=== PATIENT | female | born 1960 | race African-American/Black ===

== ENCOUNTER 2017-08-26 16:27 | Inpatient (IN) | payer BC ==
[~2017-08-26] VITALS: Ht 170.2 cm; Wt 105.7 kg
[2017-08-26 18:20] LABS: CLARITY URINE CLEAR (CLEAR); COLOR URINE YELLOW (YELLOW); KETONES URINE NEGATIVE (NEGATIVE); LEUKOCYTE ESTERASE URINE TRACE (NEGATIVE); NITRITE URINE NEGATIVE (NEGATIVE); OCCULT BLOOD URINE NEGATIVE (NEGATIVE); PROTEIN URINE NEGATIVE (NEGATIVE); UROBILINOGEN URINE 0.2 E.U./dL (0.2-1.0)
[2017-08-26 19:36] LABS: CHLORIDE 104 mEq/L (98-107)
[2017-08-26 19:37] LABS: PROTHROMBIN TIME 10.9 sec (9.4-11.6)
[2017-08-26 19:38] LABS: HEMATOCRIT. 21.7 % (36.0-48.0); MEAN CORPUSCULAR HEMOGLOBIN 13.2 pg (28.0-32.0); MEAN CORPUSCULAR VOLUME 51.7 fL (81.0-99.0); MEAN PLATELET VOLUME 8.6 fl (7.4-10.4); PLATELET 448 x1000/uL (130-400); RED BLOOD CELL COUNT 4.19 mill/uL (4.2-5.4); RED CELL DISTRIBUTION WIDTH 23.7 % (11.6-14.6)
[2017-08-26 19:45] LABS: HEMOGLOBIN. 5.5 g/dL (12.0-16.0)
[2017-08-26 20:02] LABS: PLATELET ESTIMATE INCREASED
[2017-08-26 21:02] LABS: TOTAL IRON BINDING CAPACITY 405 ug/dL (250-450)
[2017-08-26 23:58] VITALS: BP 141/67
[2017-08-27] VITALS (9 sets, daily range): BP systolic 107–148; BP diastolic 51–71
[2017-08-27] MEDS ORDERED: ASPI-1159 PO (01:37)
[2017-08-27] MEDS ORDERED: PANTOPRAZOLE 40MG DR TABLET PO SCH (07:20)
[2017-08-27 08:08] LABS: VITAMIN B12 SERUM 320 pg/mL (211-911)
[2017-08-27 09:07] LABS: T4 FREE 1.24 ng/dL (0.76-1.46)
[2017-08-27] MEDS ORDERED: DIATR MEGLU/DIATRIZOATE SOLN 30ML PO SCH (13:45)
[2017-08-27] MEDS ORDERED: IRON SUCROSE COMPLEX 100 MG/5 ML ML IV SCH (14:00)
[2017-08-27 14:50] LABS: HEMATOCRIT 26.5 % (36.0-48.0); HEMOGLOBIN 7.2 g/dL (12.0-16.0); MEAN CORPUSCULAR HEMOGLOBIN 15.4 pg (28.0-32.0); MEAN CORPUSCULAR VOLUME 56.4 fL (81.0-99.0); PLATELET 396 x1000/uL (130-400); RED BLOOD CELL COUNT 4.69 mill/uL (4.2-5.4); RED CELL DISTRIBUTION WIDTH 28.1 % (11.6-14.6)
[2017-08-27 14:58] LABS: CHLORIDE 108 mEq/L (98-107)
[2017-08-27] MEDS ORDERED: IOHEXOL-300 100 ML BOTTLE ONE (17:12)
[2017-08-27 20:36] LABS: HEMATOCRIT 26.5 % (36.0-48.0); HEMOGLOBIN 7.3 g/dL (12.0-16.0)
[2017-08-28] VITALS: BP 125/62
[2017-08-28 04:00] VITALS: BP 106/56
[2017-08-28 07:32] LABS: CHLORIDE 109 mEq/L (98-107)
[2017-08-28 08:00] VITALS: BP 118/55
[2017-08-28] MEDS: PANTOPRAZOLE SODIUM 40 MG/VIAL IV SCH (09:00)
[2017-08-28 12:00] VITALS: BP 122/58
[2017-08-28 12:56] LABS: HEMATOCRIT 28.3 % (36.0-48.0); HEMOGLOBIN 7.5 g/dL (12.0-16.0); MEAN CORPUSCULAR HEMOGLOBIN 15.1 pg (28.0-32.0); MEAN CORPUSCULAR VOLUME 56.8 fL (81.0-99.0); PLATELET 405 x1000/uL (130-400); RED BLOOD CELL COUNT 4.98 mill/uL (4.2-5.4); RED CELL DISTRIBUTION WIDTH 28.3 % (11.6-14.6)
[2017-08-28 16:00] VITALS: BP 132/62
[2017-08-28] MEDS ORDERED: SORBITOL 70% SOLN 30ML PO NR ×3 (16:29→21:00)
[2017-08-28 20:00] VITALS: BP 123/66
[2017-08-29] VITALS: BP 105/52
[2017-08-29 01:50] LABS: HEMATOCRIT 28.5 % (36.0-48.0); HEMOGLOBIN 7.7 g/dL (12.0-16.0)
[2017-08-29 04:00] VITALS: BP 106/67
[2017-08-29 06:00] LABS: HEMATOCRIT 28.1 % (36.0-48.0); HEMATOCRIT. 28.1 % (36.0-48.0); HEMOGLOBIN 7.5 g/dL (12.0-16.0); HEMOGLOBIN. 7.5 g/dL (12.0-16.0); MEAN CORPUSCULAR HEMOGLOBIN 15.2 pg (28.0-32.0); MEAN PLATELET VOLUME 8.8 fl (7.4-10.4); PLATELET 407 x1000/uL (130-400); RED BLOOD CELL COUNT 4.93 mill/uL (4.2-5.4); RED CELL DISTRIBUTION WIDTH 28.3 % (11.6-14.6)
[2017-08-29] MEDS ORDERED: SORBITOL 70% SOLN 30ML PO NR (06:00)
[2017-08-29 06:06] LABS: PARTIAL THROMBOPLASTIN TIME 24.2 sec (23.4-31.0); PROTHROMBIN TIME 10.9 sec (9.4-11.6)
[2017-08-29 06:40] LABS: CHLORIDE 114 mEq/L (98-107)
[2017-08-29 08:00] VITALS: BP 130/73
[2017-08-29] MEDS ORDERED: NA PHOS,M-B/NA PHOS,DI-BA ENEMA 118ML PR NR (08:00)
[2017-08-29] MEDS: PANTOPRAZOLE SODIUM 40 MG/VIAL IV SCH (09:04)
[2017-08-29 12:00] VITALS: BP 126/64
[2017-08-29] MEDS ORDERED: SIMETHICONE 40 MG/0.6 ML 30ML ONE (13:43)
[2017-08-29] MEDS ORDERED: SODIUM CHLORIDE 0.9% 10ML VIAL ONE (13:43)
[2017-08-29] MEDS ORDERED: FENTANYL CITRATE/PF 50MCG/ML 2ML VIAL ONE (13:56)
[2017-08-29] MEDS ORDERED: MIDAZOLAM HCL 5 MG/5 ML VIAL ONE (13:57)
[2017-08-29] MEDS ORDERED: FENTANYL CITRATE/PF 50MCG/ML 2ML VIAL IV PRN (13:59)
[2017-08-29] MEDS ORDERED: MIDAZOLAM HCL 2 MG/2 ML VIAL IV PRN (14:17)
[2017-08-29 15:37] VITALS: BP 134/61
[2017-08-30 17:17] LABS: PLATELET ESTIMATE INCREASED
== END 2017-08-29 19:02 | disposition home or self-care (01) | DRG 812 ==
LOC: ER 19:10 → 6WST 20:14 → ENRESERV 21:30
PROVIDERS: ADMIT Internal Medicine; ATTEND Internal Medicine
PROC: 30233N1 Transfusion of Nonautologous Red Blood Cells into Peripheral Vein, Percutaneous Approach (ICD-10-PCS; 2017-08-26)
PROC: 0DJD8ZZ Inspection of Lower Intestinal Tract, Via Natural or Artificial Opening Endoscopic (ICD-10-PCS; 2017-08-29)
PROC: 0DB68ZX Excision of Stomach, Via Natural or Artificial Opening Endoscopic, Diagnostic (ICD-10-PCS; principal; 2017-08-29 13:00)
DX: D50.0 Iron deficiency anemia secondary to blood loss (chronic) (principal); K22.2 Esophageal obstruction; K29.70 Gastritis, unspecified, without bleeding; I10 Essential (primary) hypertension; E66.9 Obesity, unspecified; K44.9 Diaphragmatic hernia without obstruction or gangrene; K57.30 Diverticulosis of large intestine without perforation or abscess without bleeding; K64.8 Other hemorrhoids; Z88.8 Allergy status to other drugs, medicaments and biological substances; Z79.82 Long term (current) use of aspirin; Z72.89 Other problems related to lifestyle; Z68.36 Body mass index [BMI] 36.0-36.9, adult
CPT/HCPCS: 36415; 71045; 71260; 74177; 80048; 80053; 81003; 82270; 82607; 83540; 83550; 83880; 84439; 84443; 85014; 85018; 85025; 85027; 85044; 85610; 85730; 86850; 86900; 86920; 88305; 88312; 88313; 93005; 99152; A4216; C9113; J2250; J3010; J7050; P9016; Q9963; Q9967

== ENCOUNTER 2020-08-07 13:55 | Emergency (ER) | payer BC ==
[~2020-08-07] VITALS: Ht 170.2 cm; Wt 118.2 kg
[2020-08-07] MEDS ORDERED: ONDANSETRON 4MG ODT PO STA (14:21)
[2020-08-07] MEDS ORDERED: MAGNESIUM/ALUMINUM HYDROXIDE/SIMETHICONE 30ML UDC PO ONE (14:30)
[2020-08-07] MEDS ORDERED: VISCOUS LIDOCAINE 2% 15 ML UDC PO ONE (14:30)
[2020-08-07 15:29] LABS: BASOPHILS % 0.7 % (0.0-2.0); EOSINOPHILS % 1.5 % (0.0-5.0); HEMATOCRIT. 35.9 % (36.0-48.0); HEMOGLOBIN. 11.5 g/dL (12.0-16.0); LYMPHOCYTES % 9.6 % (20.0-50.0); MEAN CORPUSCULAR HEMOGLOBIN 25.4 pg (28.0-32.0); MEAN CORPUSCULAR VOLUME 79.1 fL (81.0-99.0); MEAN PLATELET VOLUME 7.6 fl (7.4-10.4); NEUTROPHILS % 80.2 % (40.0-76.0); PLATELET 382 x1000/uL (130-400); RED BLOOD CELL COUNT 4.53 mill/uL (4.2-5.4); RED CELL DISTRIBUTION WIDTH 15.8 % (11.6-14.6)
[2020-08-07 15:36] LABS: CHLORIDE 104 mEq/L (98-107)
[2020-08-07 16:15] VITALS: BP 161/80
[2020-08-07] MEDS ORDERED: POTASSIUM CHLORIDE 20MEQ TABLET SR PO ONE (16:15)
== END 2020-08-07 16:29 | disposition home or self-care (01) ==
LOC: ER 13:55
DX: R10.13 Epigastric pain (principal); R06.00 Dyspnea, unspecified; K44.9 Diaphragmatic hernia without obstruction or gangrene; D50.9 Iron deficiency anemia, unspecified; E87.6 Hypokalemia; I10 Essential (primary) hypertension
CPT/HCPCS: 36415; 71045; 80053; 83690; 84484; 85025; 93005; 99285; Q0162

== ENCOUNTER 2023-12-10 15:04 | Emergency (ER) | payer BC ==
[~2023-12-10] VITALS: Ht 170.2 cm; Wt 91.0 kg
[2023-12-10 15:23] VITALS: BP 136/80; PULSE 109; RESP 18; TEMP 98.4; O2SAT 98
[2023-12-10] MEDS: KETOROLAC 30MG/ML VIAL IM ONE (19:53)
[2023-12-10] MEDS: HYDROCODONE/ACETAMINOPHEN 5/325MG TABLET PO ONE (19:53)
[2023-12-10] MEDS ORDERED: IBUP-2028 MT (20:05)
[2023-12-10] MEDS ORDERED: LIDO1ADH23 TP (20:05)
== END 2023-12-10 20:53 | disposition home or self-care (01) ==
LOC: ER 15:04
DX: M17.12 Unilateral primary osteoarthritis, left knee (principal); M25.562 Pain in left knee
CPT/HCPCS: 93971; 73560; 96372; 99285; J1885; Z7610 ×2